=== PATIENT | female | born 1985 | race African-American/Black ===

== ENCOUNTER 2020-07-24 22:17 | Emergency (ER) | payer SELFPAY ==
[2020-07-24 22:56] LABS: APPEARANCE,URINE Cloudy (CLEAR); BILIRUBIN,URINE Negative (NEGATIVE); COLOR,URINE Dark Yellow (YELLOW); GLUCOSE, URINE (UA) Negative (NEGATIVE); KETONES,URINE Trace mg/dL (NEGATIVE); LEUKOCYTE ESTERASE ,URINE Small (NEGATIVE); NITRATE,URINE Negative (NEGATIVE); OCCULT BLOOD,URINE Negative (NEGATIVE); PROTEIN,URINE Trace mg/dL (NEGATIVE)
[2020-07-24 23:06] LABS: BACTERIA,URINE None Seen /HPF (None Seen); MUCUS,URINE Moderate LPF (None Seen); RBC,URINE None Seen /HPF (0-1); SQUAMOUS EPITHELIAL CELL,UR Moderate /HPF (0-2); WBC,URINE 0-1 /HPF (0-1)
== END 2020-07-25 00:58 | disposition left against medical advice (07) ==
LOC: EDH 22:17
DX: N89.8 Other specified noninflammatory disorders of vagina (principal); J45.909 Unspecified asthma, uncomplicated; Z72.0 Tobacco use; Z98.51 Tubal ligation status; Z53.21 Procedure and treatment not carried out due to patient leaving prior to being seen by health care provider
CPT/HCPCS: 81001; 81025; 87486; 87797

== ENCOUNTER 2020-10-21 23:15 | Emergency (ER) | payer SELFPAY ==
[~2020-10-21] VITALS: Ht 177.8 cm; Wt 110.2 kg
== END 2020-10-22 01:39 | disposition left against medical advice (07) ==
LOC: EDH 23:29
DX: R10.9 Unspecified abdominal pain (principal); Z53.21 Procedure and treatment not carried out due to patient leaving prior to being seen by health care provider